=== PATIENT | male | born 1970 | race Caucasian/White ===

== ENCOUNTER 2017-12-22 07:09 | Emergency (ER) | payer BC ==
[~2017-12-22] VITALS: Ht 177.8 cm; Wt 77.1 kg
[~2017-12-22 07:09] MED LIST: ACETASOL HC OTI10 M1 OT; ATIVAN0.5 MG PO; IBUPROFEN 800800 M1 PO; KEFLEX500 MG PO; LEVAQUIN 500 M500 M2 PO; OXYCONTIN10 M1 PO; ROXICODONE15 M1 PO; TYLENOL325 MG PO
[2017-12-22 07:18] VITALS: BP 136/99
[2017-12-22] MEDS ORDERED: OXYCONTIN10 M1 PO (07:21)
[2017-12-22] MEDS ORDERED: PERCOCET PO (07:21)
[2017-12-22] MEDS ORDERED: ATIVAN0.5 MG PO (07:37)
== END 2017-12-22 07:54 | disposition home or self-care (01) ==
LOC: M.ERS 07:09
DX: G56.20 Lesion of ulnar nerve, unspecified upper limb (principal); F41.9 Anxiety disorder, unspecified; F10.99 Alcohol use, unspecified with unspecified alcohol-induced disorder; Z88.8 Allergy status to other drugs, medicaments and biological substances

== ENCOUNTER 2018-03-10 12:18 | Inpatient (IN) | payer BC ==
[~2018-03-10] VITALS: Ht 180.3 cm; Wt 72.6 kg
[2018-03-10] VITALS (9 sets, daily range): BP systolic 94–126; BP diastolic 48–73
[~2018-03-10 12:18] MED LIST changes: +PERCOCET PO
[2018-03-10 12:52] LABS: ABSOLUTE BASOPHILS 0.1 thou/uL (0.0-0.2); ABSOLUTE EOSINOPHILS 0.3 thou/uL (0.0-0.7); ABSOLUTE LYMPHOCYTES 5.3 thou/uL (0.8-5.3); ABSOLUTE MONOCYTES 0.7 thou/uL (0.0-1.2); ABSOLUTE NEUTROPHILS 5.5 thou/uL (1.6-8.1); BASOPHILS 0.5 %; EOSINOPHILS 2.8 %; HEMATOCRIT 42.8 % (42.0-52.0); HEMOGLOBIN 13.7 gm/dL (14.0-18.0); LYMPHOCYTES 44.2 %; MCH 27.5 pg (26.0-34.0); MCHC 32.1 g/dL (28.0-37.0); MCV 85.7 fL (80.0-100.0); MONOCYTES 6.1 %; MPV 8.8 fl. (7.2-11.1); NUCLEATED RBCS 0 /100WBC; PLATELET COUNT* 246 thou/uL (150-400); POLYS 46.4 %; RBC 4.99 mil/uL (4.50-6.00); RDW-CV 13.1 % (10.5-14.5); WBC 11.9 thou/uL (4.0-11.0)
[2018-03-10 12:59] LABS: ANION GAP 27 mmol/L (7-16); BUN 12 mg/dL (7-18); CALCIUM 8.9 mg/dL (8.5-10.1); CHLORIDE 102 mmol/L (98-107); CREATININE 1.5 mg/dL (0.6-1.3); GLUCOSE 172 mg/dL (70-99); SODIUM 139 mmol/L (136-145)
[2018-03-10 13:01] LABS: CO2 10 mmol/L (21-32)
[2018-03-10 13:06] LABS: ALBUMIN 4.1 g/dL (3.4-5.0); ALKALINE PHOSPHATASE 91 U/L (46-116); MAGNESIUM 2.8 mg/dL (1.8-2.4); SGOT 22 U/L (15-37); SGPT 25 U/L (30-65); TOTAL BILIRUBIN 0.6 mg/dL (<0.1-1.0); TOTAL PROTEIN 7.5 g/dL (6.4-8.2); TROPONIN-I LEVEL <0.06 ng/mL (<0.06)
[2018-03-10 14:18] LABS: AMP/METHAMP Negative (Negative); BARBITURATES Negative (Negative); BENZODIAZEPINES POSITIVE (Negative); COCAINE POSITIVE (Negative); METHADONE Negative (Negative); OPIATES Negative (Negative); PCP Negative (Negative); THC POSITIVE (Negative)
--- NOTE | 2018-03-10 14:55 | NUR ---
EEG IS COMPLETE. PT IS ACTIVELY VOMITING. ZOFRAN 4 MG HAS BEEN ADMINISTERED. FAMILY IS AT BEDSIDE.
--- NOTE | 2018-03-10 15:59 | NUR ---
PT COMPLETED AND SIGNED MRI PATIENT SAFETY QUESTIONNAIRE
--- NOTE | 2018-03-10 17:45 | NUR ---
A WHITE MALE AGE 47 ADMITTED POST SEIZURE FROM HOME WITNESSED BY . STEVEN CONSULT CALLED FROM ER. PRT IS VERY IRRATABLE AND SLIGHTLY AGITATED. PT NO COMPLIANT WITH SCD'S. PT REFUSING TO PUT ON GOWN BUT WANTS SOCKS PLACED.RED ABRASSIONS NOTED TO RIGHT HIP. PT REFUSING PICTURES AT THIS TIME. PT ON R/A. PT DENIES ANY COMPLAINTS OF PAIN OR NAUSEA AT THIS TIME.PT TOLERATING PO ICE CHIPS. MRA AND MRI PENDING. PT REQUESTED THAT ANSWER QUESTIONS DUE TO HE WANTS TO SLEEP.PT DOES COMPLAIN OF PHOTOPHOBIA.PT FOLLOWS COMMANDS. STATES THAT PT HAS HAD SEVERAL EPISODES OF CONFUSION LASTING ANYWHERE FROM 10 MINUETS TO 30 MINUETS WHERE PT WILL FORGET WHERE HE IS AT. PT STATES THAT THIS HAS BEEN GOING ON SINCE HE WAS DIAGNOSES WITH HEAT STROKE IN 2013.PT SLEEPING AT THIS TIME.
--- NOTE | 2018-03-10 18:57 | NUR ---
PT REMAINS RESTING AT THIS TIME. HAS FOR NOW.SHIFT REPORT TO BE GIVEN.
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
[2018-03-11] VITALS (20 sets, daily range): BP systolic 86–104; BP diastolic 40–59
--- NOTE | 2018-03-11 08:30 | NUR ---
PT RESTING COMFORTABLE, SLEEP INTERUPTED.PT TOLERATING PO FLUIDS.IVF INFUSING. PY DENIES PAIN AT THIS TIME. PT REFUSES BLOOD SUGAR STATING THAT I AM NOT DIABETIC.
--- NOTE | 2018-03-11 13:27 | EKG ---
[place] [address] ELECTROCARDIOGRAM REPORT Name: DAI ZAMARRIPA Room: [facility]- ADM IN M.R.#: [id number] Admission: 03/10/18 Attend Phys: Goldy Castro, Discharge: Date of : 70 Report #: [id number] THIS REPORT FOR: //name// [facility] ED Test Date: 2018-03-10 Test Time: 12:27:06 Pat Name: DAI ZAMARRIPA Department: Room: [facility] Gender: M Calliope Player: MISHEL : 1970 Requested By: Devika Mendoza Order Number: [id number] MD: Mu Collazo Measurements Intervals [place] Rate: 77 P: 76 AR: 163 QRS: 36 QRSD: 108 T: 52 QT: 419 QTc: 475 Interpretive Statements Sinus rhythm Anterior infarct, old Minimal ST depression, inferior leads Baseline wander in lead(s) V5 Compared to ECG 06/24/2014 11:15:50 ST (T wave) deviation now present Sinus arrhythmia no longer present Myocardial infarct finding still present Electronically Signed On 03-11-2018 13:27:27 CDT by Mu Collazo [email or web address] <ELECTRONICALLY SIGNED> By: Hemanth Collazo MD, [facility] 03/11/18 1327 1227 1227 Hemanth Collazo MD, [facility] /EPI
[2018-03-11 15:29] LABS: ABSOLUTE BASOPHILS 0.1 thou/uL (0.0-0.2); ABSOLUTE LYMPHOCYTES 1.7 thou/uL (0.8-5.3); ABSOLUTE MONOCYTES 1.2 thou/uL (0.0-1.2); ABSOLUTE NEUTROPHILS 12.5 thou/uL (1.6-8.1); BASOPHILS 0.5 %; EOSINOPHILS 0.2 %; LYMPHOCYTES 10.9 %; MCH 27.6 pg (26.0-34.0); MCHC 33.5 g/dL (28.0-37.0); MCV 82.4 fL (80.0-100.0); MONOCYTES 7.8 %; MPV 8.7 fl. (7.2-11.1); NUCLEATED RBCS 0 /100WBC; PLATELET COUNT* 172 thou/uL (150-400); POLYS 80.6 %; RBC 4.25 mil/uL (4.50-6.00); WBC 15.5 thou/uL (4.0-11.0)
[2018-03-11 15:40] LABS: HEMOGLOBIN 11.7 gm/dL (14.0-18.0)
[2018-03-11 15:49] LABS: POTASSIUM 3.6 mmol/L (3.5-5.1)
[2018-03-11 15:51] LABS: ALBUMIN 3.1 g/dL (3.4-5.0); TOTAL BILIRUBIN 0.6 mg/dL (<0.1-1.0); TOTAL PROTEIN 5.7 g/dL (6.4-8.2)
--- NOTE | 2018-03-11 18:50 | NUR ---
PT HAD MULTIPLE VISITORS.PT PREFERS TO KEEP ROOM DARK AND WANTS TO SLEEP ALL DAY. PT GIVEN PRN ATIVAN TIMES 3 WITH PAIN PILL GIVEN TIMES ONE. PT REMANS TOLERATING PO FLUIDS AND SOLID FOOD WITH NO COMPLAINTS OF NAUSEA. PT REMAINS IRRATABLE AND EASILY AGITATED WANTING MONITORING DEVICES REMOVED. PT ALSO STATED THAT HE IS TIRED OF HEARING ALRMS GOING OFF, REMINDED PT THAT SOME OF THE ALRMS ARE FROM REMOVING O2 SENSOR AND TELE LEADS COMING OFF WITH TUIRNING IN BED.PT VOIDING CLEAR YELLOW URINE INTO URINAL.PT GIVEN IVP ATIVAN EARLIER AND IS RESTING COMFORTABLE.
--- NOTE | 2018-03-11 20:00 | NUR ---
INITAL ASSESSMENT COMPLETED AT 1915. PT RESTING WITH OU CLOSED, ALERT AND ORIENTED TIMES 4. PT'S AT BEDSIDE. BRIEFLY DISCUSSED PT'S CONDITION. LEFT FOR HOME AND PLANS TO RETURN BEFORE VISITING HOURS ARE OVER. CALL LIGHT IN REACH, BED ALARM ON. PT INSTRUCTED TO CALL FOR ASSISTANCE. PT DEMONSTRATES PROPER USE.
--- NOTE | 2018-03-11 22:51 | NUR ---
ENTERED PT'S ROOM AT 2230 TO HANG NEW BAG OF NORMAL SALINE. PT WAS SLEEPING AT THAT TIME AND AWOKE WHEN IV PUMP MADE NOISE. PT ASKED FOR SOMETHING TO HELP HIM SLEEP. PT GIVEN 2 MG ATIVAN AT 2100 FOR SAME REQUEST. PT DID GO TO SLEEP AFTER LAST DOSE OF ATIVAN GIVEN. PT VERY IMPATIENT ABOUT WAITING FOR MEDS WHEN HE REQUESTS THEM. PT INFORMED NEXT DOSE DUE AT 2300. LEFT PT'S ROOM AND PT RANG CALL LIGHT AGAIN LESS THAN ONE MINUTE AFTER DOOR WAS CLOSED. OTHER CARPENTER PROTOTYPE ENTERED PT'S ROOM. PT ANGRY ABOUT NOT GETTING MEDICINE FOR SLEEP. PT AGAIN INFORMED NEXT DOSE DUE AT 2300.
[2018-03-12] VITALS (10 sets, daily range): BP systolic 88–126; BP diastolic 53–72
--- NOTE | 2018-03-12 00:34 | NUR ---
REPLACED ALL MONITORING LEADS AT MIDNIGHT WHEN IN FORMING PT HIS MEDICINE WAS NOT DUE UNTIL 0100. AT 0020 PT REMOVED ALL MONITORING EQUIPMENT AGAIN. PAGED DR HOLLOWAY.
--- NOTE | 2018-03-12 00:48 | NUR ---
RECIEVED CALL BACK FROM DR HOLLOWAY AND REPORTED PT BEHAVIOR AND SYMPTOMS. RECIEVED ORDER FOR ORI WICK.
--- NOTE | 2018-03-12 01:39 | NUR ---
PT RANG CALL LIGHT AT THIS TIME AND ASKED WHEN HE WAS GETTING MORE SLEEPING MEDICINE. INFORMED PT HE HAD TAKEN PO GEODON FOR SLEEP AND RECIEVED IV ATIVAN AT 0100. PT STATED IT WAS NOT WORKING VERY WELL. INFORMED PT THAT PILL MAY NOT BE WORKING JUST YET AND ASKE HIM TO PLEASE BE PATIENT.
--- NOTE | 2018-03-12 02:28 | NUR ---
PT RANG LIGHT AND ASKED FOR SLEEPING MEDICINE AND ANXIETY MEDICINE. INFORMED PT HE HAD TAKEN A PILL FOR SLEEP AND IV ATIVAN FOR ANXIETY AT 0100. PT STATED HIS BACK WAS HURTING AND ASKED FOR PAIN MEDICINE. PT GIVEN PRN MORPHINE.
[2018-03-12 04:02] LABS: HEMATOCRIT 33.6 % (42.0-52.0); HEMOGLOBIN 11.2 gm/dL (14.0-18.0); MCH 27.2 pg (26.0-34.0); MCHC 33.3 g/dL (28.0-37.0); MCV 81.7 fL (80.0-100.0); MPV 9.3 fl. (7.2-11.1); RBC 4.11 mil/uL (4.50-6.00); RDW-CV 12.7 % (10.5-14.5); WBC 12.3 thou/uL (4.0-11.0)
[2018-03-12 05:05] LABS: ALBUMIN 2.9 g/dL (3.4-5.0); CALCIUM 7.8 mg/dL (8.5-10.1); CREATININE 1.7 mg/dL (0.6-1.3); MAGNESIUM 2.1 mg/dL (1.8-2.4); POTASSIUM 3.8 mmol/L (3.5-5.1); TOTAL BILIRUBIN 0.5 mg/dL (<0.1-1.0); TOTAL PROTEIN 5.1 g/dL (6.4-8.2)
--- NOTE | 2018-03-12 13:48 | NUR ---
SPOKE WITH DR. SOTELO EARLIER, PT CAN BE DISCHARGED LATER TODAY IF HE WAKES UP MORE AND IS ABLE TO TOLERATE HIS DIET AND WALK AROUND. PT SLEEPING EARLIER, WILL ASSESS AT A LATER TIME.
--- NOTE | 2018-03-12 15:34 | NUR ---
PATIENT UP IN [place] STILL SEEING DOUBLE, GAIT MORE SEADY THAN IN AM. LOOKING MORE ALERT. HAD BOUT OF EMESIS. PROGRESSING TOWARD GOALS.
--- NOTE | 2018-03-12 17:58 | NUR ---
PATIENT DISCHARED HOME VIA PRIVATE CAR UNDERSTANDS PATIENT NOT DRIVE FOR 6 MOS INSTRUCTIONS GIVEN AND VERIFIED.
--- NOTE | 2018-03-13 17:26 | CON ---
[address] [address] CONSULTATION Name: DAI ZAMARRIPA Room: [address] IN M.R.#: [id number] Admission: 03/10/18 Attend Phys: Goldy Castro, Discharge: 03/12/18 Date of : 70 Report #: [id number] THIS REPORT FOR: //name// CC: JORGE physician/PCP Goldy Castro DATE OF SERVICE: 03/11/2018 HISTORY OF PRESENT ILLNESS: This is a 47-year-old male patient who was evaluated by me for seizure. The patient will not provide any history. He wants me to talk to his and the mother who was in the room, which I did. As I understand from the family, this patient has smoked marijuana on a continuous basis and daily basis for a long period of time. They do not believe this patient has used any other drugs and the patient will not answer those questions. However, this patient has marijuana, cocaine and benzodiazepine in the urine drug screen. Now it might be mentioned that this patient did get some Versed because he became agitated after his seizures by ambulance people and benzodiazepine and was most likely because of that, but he also had cocaine in his system. He would not answer any question, but some of the records I reviewed indicate that this patient also has history of benzo abuse, but that history is not confirmed. He was admitted because he had an episode of seizure, which lasted couple of minutes. He was in the shower. He was combative after that. He has become better, but he is still pretty and cooperative with the exam. REVIEW OF SYSTEMS: Indicate patient is having some episodes of memory loss. One of them happened in December, the other one the last year. They lasted about 30 minutes. The patient will keep asking the same question again and again. It is not known what kind of drugs he has used that time. He does have a history of memory loss and heat exhaustion. I carried out the 14-point review of system the best I can, but he would not add or say anything. The only thing he said is that when I said to the family that the use of marijuana or any street drugs is not a good thing and he said "it is not that bad either." That was the 14-point review of system I could collect in this patient. PAST MEDICAL HISTORY: Positive for anxiety. FAMILY HISTORY: Positive for epilepsies. SOCIAL HISTORY: This patient does not drink alcohol, but used drugs, especially marijuana. PHYSICAL EXAMINATION: Indicate that he will not cooperate. I made multiple attempts to do the examinations and he just would not do it. The only thing I can tell, he opens his eyes. He moves in all direction. He does not have any meningeal sign. He does not complain of much pain. [place] [address] CONSULTATION Name: DAI ZAMARRIPA Room: [address] IN M.R.#: [id number] Admission: 03/10/18 Attend Phys: Goldy Castro, Discharge: 03/12/18 Date of : 70 Report #: [id number] appear noncontributory and he is not in respiratory difficulty. Blood pressure is 104/52, respirations 16, pulse is 76, temperature is 98.8. LABORATORY DATA: His last white count was 11.9. His creatinine is 1.5. He did have an MRI of the brain and MRA of the head and that was unremarkable. IMPRESSION: 1. New onset seizure, probably related to the drug use, but he does have a family history of seizure disorder. 2. Significant amount of drug abuse and I think it is more than just marijuana because of cocaine positive urine. 3. Anxiety. RECOMMENDATIONS: 1. This patient was strongly advised to stop abusing street drugs, but I do not think he is willing for that. 2. This patient needs to take seizure precautions for 6 months. 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 3. I do not think we need to put him on any anticonvulsants at the moment, but I did discuss that options with him. They asked about multiple anticonvulsants and I did discuss with them. This patient needs a psychiatric consult, but I do not know whether that can be arranged here or not. All of it was discussed in detail with the patient's family and I tried to talk to the patient, but I do not think he will listen. We will also try tomorrow and see if he is more receptive. Thank you very much for this referral. <ELECTRONICALLY SIGNED> By: Jefe Willson MD 03/13/18 1726 1203 [id number] Willson MD /nt
--- NOTE | 2018-03-13 17:26 | EEG ---
[address] [address] EEG STUDY REPORT Name: DALLINDAI KAY Room: [address] IN M.R.#: [id number] Admission: 03/10/18 Attend Phys: Goldy Castro, Discharge: 03/12/18 Date of : 70 Report #: [id number] THIS REPORT FOR: //name// CC: FAM physician/PCP Goldy Castro DATE OF SERVICE: 03/10/2018 This patient is being evaluated for the possibility of seizure. EEG was done by placing the electrodes by standard 10-20 system of electrode placement. Both referential and sequential montages were used for recording. Background activity in this patient's EEG is about 9 Hz and 25 microvolts. The patient went to sleep that is associated with bilaterally symmetrical sleep spindle and vertex sharp waves. Photic stimulation is unremarkable. Throughout the record, no active epileptiform activity was noticed. IMPRESSION: This patient's EEG does not demonstrate any active epileptiform activity. Thank you very much for this referral. <ELECTRONICALLY SIGNED> By: Jefe Willson MD 03/13/18 1726 0959 [id number] Willson MD /nt
== END 2018-03-12 17:30 | disposition home or self-care (01) | DRG 100 ==
LOC: M.ERS 12:18 → M.TBA-ER 15:58 → M.ICU 15:58
PROVIDERS: Personal Emergency Response Attendant; ADMIT Family Medicine
PROC: 4A00X4Z Measurement of Central Nervous Electrical Activity, External Approach (ICD-10-PCS; principal; 2018-03-11)
DX: G40.409 Other generalized epilepsy and epileptic syndromes, not intractable, without status epilepticus (principal); N17.0 Acute kidney failure with tubular necrosis; E87.2 Acidosis; F14.10 Cocaine abuse, uncomplicated; E86.9 Volume depletion, unspecified; F22 Delusional disorders; F12.10 Cannabis abuse, uncomplicated; F41.9 Anxiety disorder, unspecified; Z87.81 Personal history of (healed) traumatic fracture; Z88.8 Allergy status to other drugs, medicaments and biological substances; Z82.0 Family history of epilepsy and other diseases of the nervous system; Z82.5 Family history of asthma and other chronic lower respiratory diseases

== ENCOUNTER 2018-11-16 05:49 | Emergency (ER) | payer OTHER ==
[~2018-11-16] VITALS: Ht 175.3 cm; Wt 77.1 kg
[~2018-11-16 05:49] MED LIST changes: +OXYCODONE HCL15 MG PO
[2018-11-16 06:17] LABS: URINE BILIRUBIN NEGATIVE (Negative); URINE BLOOD 1+ (Negative); URINE CLARITY CLEAR; URINE COLOR YELLOW; URINE GLUCOSE-RANDOM NEGATIVE (Negative); URINE KETONES NEGATIVE (Negative); URINE LEUKOCYTES-REFLEX NEGATIVE (Negative); URINE NITRITE-REFLEX NEGATIVE (Negative); URINE PROTEIN NEGATIVE (Negative); URINE SPECIFIC GRAVITY <= 1.005 (1.005-1.030); URINE UROBILINOGEN 0.2 E.U./dl (0.2-1.0)
[2018-11-16 06:18] LABS: BACTERIA-REFLEX 1-9 Few /HPF (None Seen); SQUAMOUS 0-3 Few /LPF (0-3); URINE RBC 3-10 Few /HPF (0-2); URINE WBC-REFLEX 0-5 Rare /HPF (0-5)
[2018-11-16 06:19] LABS: CASTS None Seen /LPF (None Seen); CRYSTALS None Seen /LPF (None Seen); MUCUS 0-3 Light strn/LPF (None Seen)
[2018-11-16 06:26] LABS: ABSOLUTE EOSINOPHILS 0.1 thou/uL (0.0-0.7); ABSOLUTE MONOCYTES 0.7 thou/uL (0.0-1.2); ABSOLUTE NEUTROPHILS 6.7 thou/uL (1.6-8.1); BASOPHILS 0.4 %; EOSINOPHILS 1.3 %; HEMATOCRIT 40.1 % (42.0-52.0); HEMOGLOBIN 13.4 gm/dL (14.0-18.0); LYMPHOCYTES 11.5 %; MCHC 33.4 g/dL (28.0-37.0); MCV 80.9 fL (80.0-100.0); MONOCYTES 7.9 %; MPV 8.6 fl. (7.2-11.1); NUCLEATED RBCS 0 /100WBC; PLATELET COUNT* 197 thou/uL (150-400); POLYS 78.9 %; RBC 4.95 mil/uL (4.50-6.00); RDW-CV 13.1 % (10.5-14.5); WBC 8.5 thou/uL (4.0-11.0)
[2018-11-16 06:33] LABS: AMP/METHAMP Negative (Negative); BARBITURATES POSITIVE (Negative); BENZODIAZEPINES Negative (Negative); COCAINE Negative (Negative); METHADONE Negative (Negative); OPIATES Negative (Negative); PCP Negative (Negative); THC POSITIVE (Negative)
[2018-11-16 06:34] LABS: CALCIUM 8.2 mg/dL (8.5-10.1); CREATININE 1.1 mg/dL (0.6-1.3)
[2018-11-16 06:39] LABS: ALBUMIN 3.6 g/dL (3.4-5.0); TOTAL BILIRUBIN 0.3 mg/dL (<0.1-1.0); TOTAL PROTEIN 7.1 g/dL (6.4-8.2)
[2018-11-16] MEDS ORDERED: LOMOTIL TABLET1 EACH PO (06:49)
[2018-11-16 06:58] VITALS: BP 132/80
== END 2018-11-16 07:01 | disposition home or self-care (01) ==
LOC: M.ERS 05:49
PROVIDERS: Emergency Medicine
DX: R19.7 Diarrhea, unspecified (principal); F41.9 Anxiety disorder, unspecified; Z88.8 Allergy status to other drugs, medicaments and biological substances; Z79.899 Other long term (current) drug therapy

== ENCOUNTER 2018-11-18 05:39 | Inpatient (IN) | payer OTHER ==
[~2018-11-18] VITALS: Ht 175.3 cm; Wt 81.6 kg
--- NOTE | ~2018-11-18 | EEG ---
[address] [address] EEG STUDY REPORT Name: DAI ZAMARRIPA Room: [address] IN M.R.#: [id number] Admission: 11/18/18 Attend Phys: Ruth Ann Colby MD Discharge: Date of : 70 Report #: [id number] THIS REPORT FOR: //name// CC: JORGE physician/PCP Ruth Ann Colby DATE OF SERVICE: 11/18/2018 DESCRIPTION: This patient is being evaluated for seizure. EEG was done by placing the electrodes by standard 10-20 system of electrode placement. Both referential and sequential montages were used for recording. Background activity in this patient's EEG is about 10-11 Hz and 30 microvolts. The patient went to sleep that is associated with bilateral slowing and vertex sharp waves. Photic stimulation was unremarkable. Throughout the record, no active epileptiform activity was noticed. IMPRESSION: This patient is masked by a lot of artifact and is very difficult to interpret. It is suboptimal because of that, but does not appear to be showing any definite epileptiform activity. Thank you very much for this referral. By: 1359 1604Pnatty Willson MD /nt
--- NOTE | ~2018-11-18 | CON ---
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 The patient is accompanied by his who reports that he had a 4-day history of diarrhea and nausea, diagnosed with gastroenteritis. He came to this hospital for IBS 2 days ago, which did stop his diarrhea and abdominal pain. He was noted to have a seizure at the motel that they are reciting in by his shortly after getting up. His described convulsive movements of the arms and the legs and he did bite his tongue and it was blood coming from his mouth. Paramedics were called. He was noted to be very combative. He received ketamine and Ativan because of agitation. He is alert and oriented at the present time. He reports that this is his second seizure. The first occurred in February when he had been sleep deprived and had a seizure. Workup was unremarkable. He was referred to . He was seen in the seizure clinic. He was told that all studies were unremarkable. He was not started on medication. He reports that he has had a number of heat strokes in the past, the first one in 1997. He has had 3 more in the last few years, the last in 2013 and wonders if the heat strokes might have anything to do with this. He has had spells of memory issues when he has amnesia for events and also wonders if these could be seizures. There is a family history of seizures in his maternal grandmother. No one else has seizures or neurologic problems. His father of [place]. His mother is living and is doing well. The patient sustained a fracture of L3-L4 and is taking oxycodone ER 10 mg b.i.d. His primary care doctor is Dr. Fonseca in [place]. He states that he had in the past been on much higher doses of oxycodone, but he has been able to taper the dose down to 10 mg b.i.d. He reports that he does smoke marijuana, but he denies using any other recreational drugs. He does not drink. He states that he was sleep deprived during this period of time when he had the gastroenteritis. The patient states that he has always had high anxiety, but he does not take any prescription medication for anxiety on a routine basis. He states that he is under high stress in his job, but that this is the best job that he has had for years. ALLERGIES: The patient reports allergies to NAPROXEN. He reports taking Lomotil 4 times a day. He only had 10 pills. He denies ever smoking nicotine [place] [address] CONSULTATION Name: DAI ZAMARRIPA Room: [address] IN [facility]#: [id number] Admission: 11/18/18 Attend Phys: Ruth Ann Colby MD Discharge: Date of : 70 Report #: [id number] FAMILY HISTORY: As above. REVIEW OF SYSTEMS: No symptoms reported in review of constitutional, eyes, ears, nose and throat, respiratory, cardiovascular or genitourinary systems. He does report the recent gastroenteritis, but reports no rashes, fever, chills or lymphadenopathy. PHYSICAL EXAMINATION: VITAL SIGNS: Blood pressure 136/74, pulse 67 and regular, temperature 37.5. GENERAL: The patient is lying in bed. His is at the bedside. He appears well developed, well nourished, well-nourished, in no apparent distress. NECK: Supple. EXTREMITIES: No edema is noted. NEUROLOGIC: He is alert, oriented with normal memory and speech. He is anxious. On cranial nerve testing, the pupils were equally round and reactive. Extraocular movements were full without nystagmus. Visual aldridge were full to confrontation. Facial sensation and mobility were normal. Hearing was intact bilaterally. The tongue had abrasions, particularly on the left side, but also to a degree on the right. Motor testing reveals full power in his arms or legs. There was no tremor or involuntary movements. Tone was normal. Sensation testing was intact to light touch and pin. Coordination testing was done well with [id number]. Reflexes were 2+ and equal from side to side. Toes were downgoing. Gait was not tested. LABORATORY STUDIES: Showed hemoglobin of 13.5, hematocrit 40.7. Chemistry showed potassium of 3.2, otherwise unremarkable. A B12 level was 555, folate was 14.1. Thyroid was 2.5. Toxicology showed positives for barbs, benzos, and marijuana. Cocaine was negative. Amphetamine was negative. Urine opiate screen was also negative. The patient states that he had been taking his oxycodone, but with diarrhea. He thinks that they passed through without being absorbed. An EEG was done, which will be officially read by Dr. Willson on my review. No epileptiform discharges were noted. IMPRESSION: The patient has a good history of seizure as described by his . The abrasion of his tongue strengthens the idea that this was not a pseudoseizure, but does not totally rule it out. However, seizures, particularly frontal lobe seizures, can have normal electroencephalograms if they are not caught right at the time. I did inform the patient that the [place] Department of Motor Vehicles guideline is to be seizure free for 6 [address] before he [address]. He was aware of this regulation. We discussed going on an anti-seizure medicine because this is the second seizure. He is reluctant because he feels that the provoking factor was the gastroenteritis and the diarrhea, possibly relating [place] [address] CONSULTATION Name: DAI ZAMARRIPA Room: [address] IN M.R.#: [id number] Admission: 11/18/18 Attend Phys: Ruth Ann Colby MD Discharge: Date of : 70 Report #: [id number] opiates or sleep deprivation. However, his would like for him to reconsider his decision and he agreed that he would talk to her about it and make his decision later on today. By: 1342 [id number] Sanchez MD /nt
[~2018-11-18 05:39] MED LIST changes: +LOMOTIL TABLET1 EACH PO
[2018-11-18 05:45] VITALS: BP 111/62
[2018-11-18 06:14] LABS: ABSOLUTE EOSINOPHILS 0.3 thou/uL (0.0-0.7); ABSOLUTE LYMPHOCYTES 1.3 thou/uL (0.8-5.3); ABSOLUTE MONOCYTES 0.5 thou/uL (0.0-1.2); ABSOLUTE NEUTROPHILS 5.9 thou/uL (1.6-8.1); BASOPHILS 0.5 %; EOSINOPHILS 3.3 %; HEMATOCRIT 40.7 % (42.0-52.0); HEMOGLOBIN 13.5 gm/dL (14.0-18.0); LYMPHOCYTES 15.6 %; MCH 26.9 pg (26.0-34.0); MCHC 33.1 g/dL (28.0-37.0); MCV 81.3 fL (80.0-100.0); MONOCYTES 6.5 %; MPV 9.1 fl. (7.2-11.1); NUCLEATED RBCS 0 /100WBC; PLATELET COUNT* 225 thou/uL (150-400); POLYS 74.1 %; RBC 5.01 mil/uL (4.50-6.00); RDW-CV 12.9 % (10.5-14.5)
[2018-11-18 06:25] LABS: INR 1.1
[2018-11-18 06:40] LABS: ANION GAP 14 mmol/L (7-16); BUN 8 mg/dL (7-18); CALCIUM 8.5 mg/dL (8.5-10.1); CHLORIDE 106 mmol/L (98-107); CO2 23 mmol/L (21-32); CREATININE 1.2 mg/dL (0.6-1.3); GLUCOSE 134 mg/dL (70-99); POTASSIUM 3.2 mmol/L (3.5-5.1); SODIUM 143 mmol/L (136-145)
[2018-11-18 06:50] LABS: ALBUMIN 3.5 g/dL (3.4-5.0); ALKALINE PHOSPHATASE 92 U/L (46-116); NT-PRO BRAIN NAT PEPTIDE 39 pg/mL (<300); SGOT 27 U/L (15-37); SGPT 41 U/L (30-65); TOTAL BILIRUBIN 0.2 mg/dL (<0.1-1.0); TOTAL PROTEIN 7.1 g/dL (6.4-8.2); TROPONIN-I LEVEL <0.06 ng/mL (<0.06)
--- NOTE | 2018-11-18 07:17 | NUR ---
PT SCREAMING FROM HIS BED THAT HE HAS TO PEE. PT WAS BROUGHT URINAL AND ASKED IF HE NEEDS ASSISTANCE WITH USING A URINAL, PT DENIED NEEDING TO PEE ANYMORE. URINAL LEFT AT BEDSIDE.
--- NOTE | 2018-11-18 07:25 | NUR ---
PT WAS TAKEN OUT OF 4 POINT RESTRAINTS AT 0720. PT COOPERATING AT THIS TIME.
[2018-11-18 07:44] LABS: URINE BILIRUBIN NEGATIVE (Negative); URINE BLOOD 1+ (Negative); URINE CLARITY CLEAR; URINE COLOR YELLOW; URINE GLUCOSE-RANDOM NEGATIVE (Negative); URINE KETONES NEGATIVE (Negative); URINE LEUKOCYTES-REFLEX NEGATIVE (Negative); URINE NITRITE-REFLEX NEGATIVE (Negative); URINE PROTEIN NEGATIVE (Negative); URINE SPECIFIC GRAVITY >= 1.030 (1.005-1.030); URINE UROBILINOGEN 0.2 E.U./dl (0.2-1.0)
[2018-11-18 07:51] LABS: AMP/METHAMP Negative (Negative); BARBITURATES POSITIVE (Negative); BENZODIAZEPINES POSITIVE (Negative); COCAINE Negative (Negative); METHADONE Negative (Negative); OPIATES Negative (Negative); PCP Negative (Negative); SQUAMOUS 0-3 Few /LPF (0-3); THC POSITIVE (Negative)
[2018-11-18 07:52] LABS: BACTERIA-REFLEX 1-9 Few /HPF (None Seen); CASTS None Seen /LPF (None Seen); CRYSTALS None Seen /LPF (None Seen); MUCUS None Seen strn/LPF (None Seen); URINE RBC 0-2 Rare /HPF (0-2); URINE WBC-REFLEX 0-5 Rare /HPF (0-5)
--- NOTE | 2018-11-18 09:23 | NUR ---
PT'S PHONE WAS GIVEN TO SECURITY
[2018-11-18 10:00] LABS: ACETAMINOPHEN < 2 ug/mL (10-30); ALCOHOL < 10 mg/dL (<10); SALICYLATE < 2.8 mg/dL (2.8-20.0)
[2018-11-18 10:11] VITALS: BP 109/59
[2018-11-18 10:30] VITALS: BP 136/74
--- NOTE | 2018-11-18 13:54 | EKG ---
[place] [address] ELECTROCARDIOGRAM REPORT Name: DAI ZAMARRIPA Room: [address] ADM IN .R.#: [id number] Admission: 11/18/18 Attend Phys: Ruth Ann Colby MD Discharge: Date of : 70 Report #: [id number] THIS REPORT FOR: //name// [facility] ED Test Date: 2018-11-18 Test Time: 06:03:51 Pat Name: DAI ZAMARRIPA Department: Room: [facility] Gender: M House Carpenter: : 1970 Requested By: Velia Jones Order Number: [id number] MD: Alexandro Malik Measurements Intervals [place] Rate: 86 P: 69 ID: 170 QRS: 36 QRSD: 105 T: 48 QT: 382 QTc: 457 Interpretive Statements Sinus rhythm Anterior infarct, old Baseline wander in lead(s) III,aVF Compared to ECG 03/10/2018 12:27:06 Myocardial infarct finding still present Electronically Signed On 11-18-2018 13:54:08 HAND SPRAY OPERATOR by Alexandro Malik [email or web address] <ELECTRONICALLY SIGNED> By: Alexandro Malik MD, [facility] 11/18/18 1354 0603 0603 Alexandro Malik MD, [facility] /EPI
--- NOTE | 2018-11-18 14:00 | NUR ---
PATIENT PRESENTED TO 2W FROM ER THIS AM PER CART. PATIENT IS ALERT, ORIENTED, ANXIOUS AND C/O BACK PAIN AND OXCONTIN W/D ON ARRIVAL TO THE ROOM. PATIENT ADMITTED TO THE ROOM AND DR HOLLOWAY NOTIFIED FOR PATIENT'S COMPLAINTS. IV FLUIDS STARTED AND PATIENT STARTED ON OXYCONTIN PER ORDER. ATIVAN GIVEN IV X 1 FOR ANXIETY. PATIENT ORIENTED TO ROOM AND PROCEDURES. POTASSIUM 40 MEQ GIVEN PO PER PROTOCAL. PATIENT PLACED ON TELE MONITOR, SIDERAILS PADDED, AND O2 IS AT THE HOB. EEG DONE PER TECH. TELE SHOWS SR. WILL CONTINUE TO MONITOR FOR SEIZURE ACTIVITY. PATIENT ON FALL PRECAUTIONS.
[2018-11-18 20:00] VITALS: BP 92/53
[2018-11-19] VITALS: BP 105/63
[2018-11-19 04:00] VITALS: BP 93/48
[2018-11-19 05:21] LABS: MCH 27.8 pg (26.0-34.0); MCHC 34.5 g/dL (28.0-37.0); MCV 80.6 fL (80.0-100.0); MPV 9.1 fl. (7.2-11.1); RBC 4.09 mil/uL (4.50-6.00); RDW-CV 12.8 % (10.5-14.5); WBC 9.2 thou/uL (4.0-11.0)
[2018-11-19 05:56] LABS: CALCIUM 7.9 mg/dL (8.5-10.1); MAGNESIUM 1.9 mg/dL (1.8-2.4); POTASSIUM 3.2 mmol/L (3.5-5.1)
[2018-11-19 05:57] LABS: HEMOGLOBIN 11.4 gm/dL (14.0-18.0)
--- NOTE | 2018-11-19 06:45 | NUR ---
ASSUMED CARE OF PT AFTER REPORT AT 1930. PT A&OX4. VSS. PHYSICAL ASSESSMENT COMPLETED AND CHARTED. PT ON RA WITH 97% O2 SAT. PT TRACING SR/SB ON TELE. PT UPSTANDBY. SEIZURE PRECAUTION MAINTAINED. PT REQUESTED FOR STRONGER SLEEPING PILL- DR NOVA INFORMED WITH NEW ORDERS. CALL LIGHT WITHIN REACH.
[2018-11-19 08:00] VITALS: BP 106/68
[2018-11-19] MEDS ORDERED: KEPPRA 500 MG500 M1 PO (10:38)
[2018-11-19 12:00] VITALS: BP 124/62
[2018-11-19 12:44] VITALS: BP 124/62
== END 2018-11-19 13:00 | disposition home or self-care (01) | DRG 101 ==
LOC: M.ERS 05:39 → M.TBA-ER 06:39 → M.2W 07:20 → M.TBA-ER 07:20 → M.2W 10:27
PROVIDERS: Emergency Medicine; Family Medicine; ADMIT Internal Medicine
DX: G40.909 Epilepsy, unspecified, not intractable, without status epilepticus (principal); Z88.8 Allergy status to other drugs, medicaments and biological substances; G89.29 Other chronic pain; M54.5 Low back pain; A08.4 Viral intestinal infection, unspecified; L23.7 Allergic contact dermatitis due to plants, except food; Z53.29 Procedure and treatment not carried out because of patient's decision for other reasons; K58.9 Irritable bowel syndrome, unspecified; S00.512A Abrasion of oral cavity, initial encounter; X58.XXXA Exposure to other specified factors, initial encounter; Y93.89 Activity, other specified; Y92.89 Other specified places as the place of occurrence of the external cause; Y99.8 Other external cause status

== ENCOUNTER 2019-04-25 15:39 | Emergency (ER) | payer OTHER ==
[~2019-04-25] VITALS: Ht 175.3 cm; Wt 81.7 kg
[~2019-04-25 15:39] MED LIST changes: +KEPPRA 500 MG500 M1 PO
[2019-04-25 15:44] VITALS: BP 137/85
== END 2019-04-25 16:40 | disposition home or self-care (01) ==
LOC: M.ERS 15:39
DX: Z02.79 Encounter for issue of other medical certificate (principal); Z88.8 Allergy status to other drugs, medicaments and biological substances

== ENCOUNTER 2019-04-28 11:18 | Inpatient (IN) | payer OTHER ==
[~2019-04-28] VITALS: Ht 175.3 cm; Wt 79.5 kg
[2019-04-28 11:21] VITALS: BP 118/56
[2019-04-28 12:11] LABS: ABSOLUTE BASOPHILS 0.1 thou/uL (0.0-0.2); ABSOLUTE EOSINOPHILS 0.2 thou/uL (0.0-0.7); ABSOLUTE LYMPHOCYTES 2.3 thou/uL (0.8-5.3); ABSOLUTE MONOCYTES 0.9 thou/uL (0.0-1.2); ABSOLUTE NEUTROPHILS 12.7 thou/uL (1.6-8.1); BASOPHILS 0.7 %; EOSINOPHILS 1.3 %; HEMATOCRIT 41.4 % (42.0-52.0); HEMOGLOBIN 13.9 gm/dL (14.0-18.0); LYMPHOCYTES 14.1 %; MCH 26.6 pg (26.0-34.0); MCHC 33.5 g/dL (28.0-37.0); MCV 79.4 fL (80.0-100.0); MONOCYTES 5.6 %; MPV 8.5 fl. (7.2-11.1); NUCLEATED RBCS 0 /100WBC; PLATELET COUNT* 273 thou/uL (150-400); POLYS 78.3 %; RBC 5.22 mil/uL (4.50-6.00); RDW-CV 13.2 % (10.5-14.5); WBC 16.1 thou/uL (4.0-11.0)
[2019-04-28 12:33] LABS: CALCIUM 9.1 mg/dL (8.5-10.1); CREATININE 1.4 mg/dL (0.6-1.3); POTASSIUM 3.7 mmol/L (3.5-5.1)
[2019-04-28 12:37] LABS: ALBUMIN 3.9 g/dL (3.4-5.0); TOTAL BILIRUBIN 0.3 mg/dL (<0.1-1.0); TOTAL PROTEIN 7.4 g/dL (6.4-8.2); TROPONIN-I LEVEL 0.25 ng/mL (<0.06)
[2019-04-28 15:28] VITALS: BP 113/64
[2019-04-28 15:35] VITALS: BP 103/62
[2019-04-28] MEDS ORDERED: COLACE100 MG PO (16:20)
[2019-04-28 17:51] VITALS: BP 105/70
[2019-04-28 20:00] VITALS: BP 96/53
[2019-04-28 23:48] LABS: CALCIUM 8.3 mg/dL (8.5-10.1); CREATININE 1.1 mg/dL (0.6-1.3); MAGNESIUM 1.9 mg/dL (1.8-2.4); POTASSIUM 4.2 mmol/L (3.5-5.1)
[2019-04-29] VITALS: BP 98/67
[2019-04-29 04:00] VITALS: BP 86/55
[2019-04-29 07:45] VITALS: BP 98/57
[2019-04-29 09:09] LABS: CHOLESTEROL 155 mg/dL (<200); HDL CHOLESTEROL 36 mg/dL (>40); LDL CHOLESTEROL 101 mg/dL (<100); TC:HDL 4.3 Ratio (Not establshd); TRIGLYCERIDE 93 mg/dL (<150); VLDL 19 mg/dL (<40)
[2019-04-29 09:10] LABS: SERUM ASSESSMENT Clear
[2019-04-29 11:42] VITALS: BP 103/81
--- NOTE | 2019-04-29 14:28 | 2DMMODE ---
[place] [address] 2 D/M-MODE ECHOCARDIOGRAM Name: DAI ZAMARRIPA Room: [address] ADM IN M.R.#: [id number] Admission: 04/28/19 Attend Phys: Sajan Jaime Discharge: Date of : 70 Date of Service: 04/29/19 1427 Report #: [id number] THIS REPORT FOR: //name// APPROVED REPORT Study performed: 04/29/2019 09:29:17 EXAM: Comprehensive 2D, Doppler, and color-flow Echocardiogram Patient Location: Bedside BSA: 1.98 HR: 78 bpm BP: 98/57 mmHg Other Information Study Quality: Good Indications Elevated Troponin 2D Dimensions IVSd: 12.01 (7-11mm) LVOT Diam: 20.32 (18-24mm) LVDd: 48.55 mm PWd: 11.86 (7-11mm) Ascending Ao: 33.21 (22-36mm) LVDs: 42.72 (25-40mm) Aortic Root: 30.11 mm Volumes Left Atrial Volume (Systole) LA ESV Index: 18.60 mL/m2 Aortic Valve AoV Peak Deyvi.: 0.90 m/s AO Peak Gr.: 3.22 mmHg LVOT Max P.82 mmHg AO Mean Gr.: 2.07 mmHg LVOT Mean P.79 mmHg LVOT Max V: 0.98 m/s AO V2 VTI: 16.86 cm LVOT Mean V: 0.62 m/s NEYMAR (VTI): 3.13 cm2 LVOT V1 VTI: 16.28 cm Mitral Valve E/A Ratio: 1.52 MV Decel. Time: 209.27 ms MV E Max Deyvi.: 0.70 m/s MV PHT: 60.69 ms MVA (PHT): 3.63 cm2 [place] [address] 2 D/M-MODE ECHOCARDIOGRAM Name: DAI ZAMARRIPA Room: [address] IN .R.#: [id number] Admission: 04/28/19 Attend Phys: Sajan Jaime Discharge: Date of : 70 Date of Service: 04/29/19 1427 Report #: [id number] TDI E/Lateral E': 6.36 E/Medial E': 7.78 Medial E' Deyvi.: 0.09 m/s Lateral E' Deyvi.: 0.11 m/s Pulmonary Valve PV Peak Deyvi.: 0.81 m/s PV Peak Gr.: 2.66 mmHg Tricuspid Valve RAP Estimate: 20.00 mmHg TR Peak Gr.: 29.71 mmHg RVSP: 49.71 mmHg PA Pressure: 49.71 mmHg Left Ventricle The left ventricle is normal size. There is mild diffuse hypokinesis of left ventricular wall motion. There is normal left ventricular wall thickness. Left ventricular systolic function is borderline. LVEF is 50%. The left ventricular diastolic function is normal. Right Ventricle The right ventricle is normal size. The right ventricular systolic function is normal. Atria The left atrium size is normal. The right atrium size is normal. Aortic Valve Mild aortic valve sclerosis. No aortic regurgitation is present. There is no aortic valvular stenosis. Mitral Valve The mitral valve is normal in structure. Mild mitral regurgitation. No evidence of mitral valve stenosis. Tricuspid Valve The tricuspid valve is normal in structure. Trace tricuspid regurgitation. Pulmonic Valve The pulmonary valve is normal in structure. There is no pulmonic valvular regurgitation. [place] [address] 2 D/M-MODE ECHOCARDIOGRAM Name: DAI ZAMARRIPA Room: [address] IN .R.#: [id number] Admission: 04/28/19 Attend Phys: Sajan Jaime Discharge: Date of : 70 Date of Service: 04/29/19 1427 Report #: [id number] The aortic root is normal in size. IVC is dilated and collapses <50% with inspiration. Pericardium There is no pericardial effusion. <Conclusion> The left ventricle is normal size. There is normal left ventricular wall thickness. Left ventricular systolic function is borderline. LVEF is 50%. The right ventricle is normal size. The left atrium size is normal. Mild aortic valve sclerosis. No aortic regurgitation is present. There is no aortic valvular stenosis. The mitral valve is normal in structure. Mild mitral regurgitation. The tricuspid valve is normal in structure. IVC is dilated and collapses <50% with inspiration. There is no pericardial effusion. There is mild diffuse hypokinesis of left ventricular wall motion. <ELECTRONICALLY SIGNED> By: Juan Galvin MD, [facility] 04/29/19 1427 1427 1427 Juan Galvin MD, [facility] /INF
--- NOTE | 2019-04-29 16:59 | EKG ---
[place] [address] ELECTROCARDIOGRAM REPORT Name: DAI ZAMARRIPA Room: [address] ADM IN M.R.#: [id number] Admission: 04/28/19 Attend Phys: Zarina Coulter Discharge: Date of : 70 Report #: [id number] THIS REPORT FOR: //name// [facility] ED Test Date: 2019-04-28 Test Time: 11:52:24 Pat Name: DAI ZAMARRIPA Department: Room: [facility] Gender: M Pcu Rn: CORNELL : 1970 Requested By: Sean Cortez Order Number: [id number] MD: Juan Galvin Measurements Intervals [place] Rate: 82 P: 79 [place]: 190 QRS: 4 QRSD: 90 T: 32 QT: 372 QTc: 435 Interpretive Statements Sinus rhythm Anterior infarct, old Compared to ECG 11/18/2018 06:03:51 No significant changes Electronically Signed On 04-29-2019 16:59:20 CDT by Juan Galvin [email or web address] <ELECTRONICALLY SIGNED> By: Juan Galvin MD, [facility] 04/29/19 1659 1152 1152 Juan Galvin MD, FAC /EPI
--- NOTE | 2019-04-29 17:09 | EKG ---
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
--- NOTE | 2019-04-29 17:24 | CARDNUC ---
[place] [address] CARDIAC NUCLEAR IMAGING REPORT Name: DAI ZAMARRIPA Room: [address] IN [facility]#: [id number] Admission: 04/28/19 Attend Phys: Sajan Jaime Discharge: Date of : 70 Date of Service: 04/29/19 1724 Report #: [id number] THIS REPORT FOR: //name// APPROVED REPORT Study performed: 04/29/2019 11:45:00 Indication: Troponin elevation Patient Location: In-Patient Room #: 201 Stress Tech: Rea Landry Stress Nurse: Esperanza Willingham RN Ht: 5 ft 9 in Wt: 180 lbs BSA: 1.98 m2 BMI: 26.57 Medical History Medical History: Fatigue, Hyperlipidemia, Seizures, Weakness, Elevated Troponin, Smokes Marijuana. Medications: Coreg, Lipitor, ASA 81 MG, Lisinopril. Allergies: Naproxen, Poison Mary Extract. Cardiac Risk Factors: Age, DM, Hyperlipidemia, Marijuana smoker. Previous Cardiac Procedures: None Pretest Chest Pain Characteristics: No chest pain Exercise History: Physically active Physical Disabilities: Generalized weakness, fatigue. Meds Held (24 hrs): Coreg Resting Data Rest SPECT myocardial perfusion imaging was performed in supine position 30 minutes following the intravenous injection of 11.1 mCi of Tc-99m Sestamibi. Time of rest injection: 13:45 The images were gated to evaluate regional wall motion and calculate left ventricular ejection fraction. Administration Route: IV Administration Site: Left Hand Pharmacologic Stress Pharmacologic stress test was performed by injecting Regadenoson 0.4 mg IV push over 10-15 seconds immediately followed by the intravenous injection of 33.8 mCi of Tc-99m Sestamibi. Time of stress injection: 15:15 Administration Route: [place] [address] CARDIAC NUCLEAR IMAGING REPORT Name: DAI ZAMARRIPA Room: [address] IN ..#: [id number] Admission: 04/28/19 Attend Phys: Sajan Jaime Discharge: Date of : 70 Date of Service: 04/29/19 1724 Report #: [id number] Administration Site: Left Hand Heart Rate at time of stress injection: 85 bpm. Gated Stress SPECT was performed 45 minutes after stress injection. The images were gated to evaluate regional wall motion and calculate left ventricular ejection fraction. Stress Test Details Stress Test: Pharmacologic stress was paired with low level exercise. Reason for pharmacologic stress test: HX of recent Seizure, Generalized weakness/fatigue.. HR Max Heart Rate (APMHR): 172 bpm Resting HR: 71 bpm Target HR (85% APMHR): 146 bpm Max HR Achieved: 110 bpm % of APMHR: 63 Recovery HR: 81 bpm BP Resting BP: 103/70 mmHg Max BP: 100/73 mmHg Recovery BP: 107/66 mmHg ECG Resting ECG: Sinus Rhythm Stress ECG: Sinus Tachycardia ST Change: None Arrhythmia: None Recovery ECG: Sinus Rhythm Recovery ST Change: None Recovery Arrhythmia: None Clinical Reason for Termination: Completed protocol Stress Symptoms: Fatigue, Weakness Exercise duration: 4 min 02 sec Exercise capacity: 2.15 METs The patient tolerated Lexiscan infusion without apparent symptoms. Nurse Comments 48 year old presented in wheelchair with flat affect, little to no eye contact, sometimes no response to conversation. Patient recent HX of seizure and elevated troponins. Patient tolerated walking Lexiscan well. Recovery unremarkable with PO caffeine. Patient escorted via wheelchair by staff to Nuclear Medicine [place] [address] CARDIAC NUCLEAR IMAGING REPORT Name: DAI ZAMARRIPA Room: [address] IN ..#: [id number] Admission: 04/28/19 Attend Phys: Sajan Jaime Discharge: Date of : 70 Date of Service: 04/29/19 1724 Report #: [id number] with no complaints at that time. Stress ECG Conclusion The baseline 12-lead EKG shows sinus rhythm without significant ST segment depression. EKGs obtained during and post Lexiscan infusion showed sinus rhythm and sinus tachycardia with no significant ST segment depression when compared to baseline. There were no stress-induced arrhythmias. Study Quality Study: Good Artifact: No artifact Study Data At rest, the left ventricular ejection fraction was 39%.. Post stress, the left ventricular ejection was 41%.. TID = 1.10. Perfusion There is a partially reversible mid anterior wall defect noted. There is a moderately reversible basal to mid inferior wall defect. Wall Motion There is mid anterior and basal to mid inferior wall hypokinesis noted. Nuclear Conclusion ECG Findings: negative for ischemia Clinical Findings: negative for ischemia Nuclear Findings: positive for ischemia Exercise Capacity: not assessed Left Ventricular Function: abnormal Risk Study: high Perfusion images suggest prior infarct of both the patient anterior as well as basal mid inferior wall with moderate sounds of melly-infarct ischemia identified. Global LV systolic function is moderately decreased. This is a high risk study. <Conclusion> The baseline 12-lead EKG shows sinus rhythm without significant ST segment depression. EKGs obtained during and post Lexiscan infusion showed sinus rhythm and sinus tachycardia with no [place] [address] CARDIAC NUCLEAR IMAGING REPORT Name: DALLINDAITiffany KAY Room: [address]#: [id number] Admission: 04/28/19 Attend Phys: Sajan Jaime Discharge: Date of : 70 Date of Service: 04/29/19 1724 Report #: [id number] segment depression when compared to baseline. There were no stress-induced arrhythmias. <ELECTRONICALLY SIGNED> By: To Robert MD, FACC 04/29/19 1724 1724 1724 To Robert MD, FAC /INF
[2019-04-29 20:00] VITALS: BP 82/46
[2019-04-29 23:31] LABS: AMP/METHAMP Negative (Negative); BARBITURATES Negative (Negative); BENZODIAZEPINES POSITIVE (Negative); COCAINE Negative (Negative); METHADONE Negative (Negative); OPIATES POSITIVE (Negative); PCP Negative (Negative); THC POSITIVE (Negative)
[2019-04-30] VITALS: BP 101/54
[2019-04-30 04:00] VITALS: BP 100/64
[2019-04-30 05:47] LABS: CALCIUM 8.3 mg/dL (8.5-10.1); CREATININE 1.1 mg/dL (0.6-1.3); POTASSIUM 3.4 mmol/L (3.5-5.1)
[2019-04-30 08:00] VITALS: BP 102/55
[2019-04-30 11:25] VITALS: BP 121/84
[2019-04-30 15:38] VITALS: BP 115/78
--- NOTE | 2019-04-30 16:41 | CARD ---
[facility] [address] [place] [address] CARDIAC CATH REPORT Name: DAI ZAMARRIPA Room: [address] IN M.R.#: [id number] Admission: 04/28/19 Attend Phys: Zarina Coulter Discharge: Date of : 70 Report #: [id number] THIS REPORT FOR: //name// APPROVED REPORT Study performed: 04/30/2019 13:19:31 Patient Details Patient Status: In-Patient Room #: The patient is a 48 year-old male Event Personnel To Robert Vice President Supply Chain, Kateryna Ruvalcaba RN Sports Clerk, Phillip Alan DYEHOUSE WORKER Scrub, Adele Freeman RN Monitor, Uche Guallpa DYEHOUSE WORKER Monitor Procedures Performed Left heart catheterization, left ventriculography and coronary angiography. Indication Non-STEMI (>12 hrs to = 24 hrs) Procedure Narrative The patient was brought electively to the Cardiac Catheterization Laboratory and was prepped and draped in a sterile manner. The right femoral was infiltrated with 1% Lidocaine subcutaneous anesthesia. A 6fr Ultimum Sheath sheath was inserted into the . Coronary angiography was performed using coronary diagnostic catheters. The right coronary system was accessed and visualized with a Diagnostic - JR4 catheter. The left coronary system was accessed and visualized with a Diagnostic - JL4 catheter. The left ventricle was accessed and visualized with a Diagnostic - STR PIG catheter. Closure device was deployed with a Fr MynxGrip 6/7F. The patient tolerated the procedure well and there were no complications associated with the procedure. There was no hematoma. Intraoperative Conscious Sedation Sedation start time: 1401 Case end Time: 1412 Fentanyl 50 mcg Versed 2 mg Fluoro Time: 1.5 minutes Dose: DAP 23175 cGycm2 671 mGy Contrast Type and Amount: Omnipaque [address] [place] [address] CARDIAC CATH REPORT Name: DALLINDAI ELIZA Room: [address] IN [facility].#: [id number] Admission: 04/28/19 Attend Phys: Zarina Coulter Discharge: Date of : 70 Report #: [id number] Coronary Angiography The patient's coronary anatomy is right dominant. Diagnostic Cath Left Main Normal. LAD The vessel has some tubular narrowing proximally felt to be due to coronary spasm. No hemodynamically significant stenoses were noted. The vessel appears otherwise normal. Diagonal 1 Normal. Diagonal 2 Normal. Circumflex Normal in the proximal mid and distal portion. OM1 Normal. OM2 Normal. Right Coronary Spasm noted in the proximal portion relieved with nitroglycerin. The vessel is otherwise normal. R PDA Normal. RPLV Normal. Left Ventriculography The left ventricle is normal in size with normal contractility. The left ventricular ejection fraction is estimated to be 60-65%. Hemodynamics The aortic pressure is 114/70 mmHg with a mean of 69 mmHg. The left ventricular pressure is 115/9 mmHg with a mean of mmHg. The left ventricular end diastolic pressure is 29 mmHg. Conclusion 1. Coronary spasm identified in the proximal LAD and proximal right coronary arteries. 2. No significant atherosclerotic disease noted. 3. Normal left ventricular systolic function. 4. Normal left ventricular end-diastolic pressure. Recommendations 1. Continue medical management and risk factor modification. 2. Recommend medication for coronary spasm. <ELECTRONICALLY SIGNED> By: To Robert MD, FACC 04/30/19 164 40 164Micjeovanny Robert MD, FACC /INF
[2019-04-30 20:00] VITALS: BP 114/81
[2019-05-01] VITALS: BP 138/51
[2019-05-01 03:44] VITALS: BP 113/62
[2019-05-01 08:00] VITALS: BP 118/78; BP 155/92
[2019-05-01] MEDS ORDERED: ASPIR 8181 MG PO (11:45)
[2019-05-01] MEDS ORDERED: LIPITOR10 MG PO (11:46)
[2019-05-01] MEDS ORDERED: CARDIZEM CD120 MG PO (11:46)
[2019-05-01] MEDS ORDERED: KEPPRA 500 MG500 M1 PO (11:47)
[2019-05-01] MEDS ORDERED: NITROGLYCERIN0.4 MG SUBLING (11:48)
[2019-05-01 11:49] VITALS: BP 118/78
--- NOTE | 2019-05-01 14:34 | CON ---
[address] [address] CONSULTATION Name: DAI ZAMARRIPA Room: [address] IN M.R.#: [id number] Admission: 04/28/19 Attend Phys: Zarina Coulter Discharge: 05/01/19 Date of : 70 Report #: [id number] THIS REPORT FOR: //name// CC: JORGE physician/PCP Kandace Jaime DATE OF SERVICE: 04/29/2019 HISTORY OF PRESENT ILLNESS: This is a 48-year-old male patient, who was evaluated by me for seizure. This patient had been admitted here before. He was seen by Dr. Sanchez and he is not taking his Keppra. Although, his workup was unremarkable and his seizure looks pretty typical. He also has complicated history that he has a history of benzodiazepine misuse, anxiety and cocaine abuse as per record. He is not much interested in giving the history and it was very difficult to get much history from him. The best I can tell, his drug screen was not done during this hospitalization, but has been done in the past. REVIEW OF SYSTEMS: Difficult to get from him, he is not much interested in giving the history. I got it mostly from the records as well from my prior notes and this is as summarized above. PAST MEDICAL HISTORY: Positive for seizure, but he has not taken his medications. FAMILY HISTORY: According to him is unremarkable. SOCIAL HISTORY: As described above, but very difficult, the patient will not cooperate with examination. PHYSICAL EXAMINATION: He is drowsy, but he wakes up. When he wakes up, he does not cooperate with the examination. We will try to re-evaluate him again tomorrow. He moves all 4 extremities. He does not appear to have any meningeal sign. His cardiac examination is unremarkable. His respiratory examination is unremarkable. His blood pressure is 103/81, respiration is 14, pulse rate is 74, and temperature is 99.4. DIAGNOSTIC STUDIES: His prior imaging studies and the imaging study from the present was reviewed and that does not show any abnormality. IMPRESSION: This patient has multiple seizures. It will be best for him to go on anticonvulsant. He wants to do that and he wants to go on Keppra. I discussed the potential side effects of Keppra with him and he understands it. We will start him on that. He needs to take seizure precautions for 6 months and he cannot drive for 6 months. [place] [address] CONSULTATION Name: DALLINDAITiffany KAY Room: [address]#: [id number] Admission: 04/28/19 Attend Phys: Zarina Coulter Discharge: 05/01/19 Date of : 70 Report #: [id number] Thank you very much for this referral and we will follow this patient along with you. <ELECTRONICALLY SIGNED> By: Jefe Louise MD 05/01/19 1434 [id number] Louise MD /nt
--- NOTE | 2019-05-01 14:34 | EEG ---
[facility] [address] [place] [address] EEG STUDY REPORT Name: ADLLINDAITiffany KAY Room: [address] IN M.R.#: [id number] Admission: 04/28/19 Attend Phys: Zarina Coulter Discharge: 05/01/19 Date of : 70 Report #: [id number] THIS REPORT FOR: //name// CC: FAM physician/PCP Kandace Jaime DATE OF SERVICE: 04/29/2019 This patient has a history of seizure and EEG was done to further evaluate that. EEG was done by placing the electrodes by standard 10-20 system of electrode placement. Both referential and sequential montages were used for recording. The background activity in this patient's EEG is about 11 Hz and 40 microvolt. This was a symmetrical activity. Photic stimulation was unremarkable. The patient went to sleep and that is associated with bilaterally symmetrical sleep spindle and vertex sharp waves. Throughout the record, no active epileptiform activity was noticed. IMPRESSION: This patient's EEG is unremarkable. Thank you very much for this referral. <ELECTRONICALLY SIGNED> By: Jefe Louise MD 05/01/19 1434 0832 [id number] Louise MD /nt
== END 2019-05-01 12:40 | disposition home or self-care (01) | DRG 281 ==
LOC: M.ERS 11:18 → M.2W 13:49 → M.TBA-ER 13:49 → M.2W 15:30
PROVIDERS: Family Medicine; Registered Nurse; ADMIT Internal Medicine
PROC: B2151ZZ Fluoroscopy of Left Heart using Low Osmolar Contrast (ICD-10-PCS; principal; 2019-04-30)
PROC: 4A023N7 Measurement of Cardiac Sampling and Pressure, Left Heart, Percutaneous Approach (ICD-10-PCS; principal; 2019-04-30)
PROC: B2111ZZ Fluoroscopy of Multiple Coronary Arteries using Low Osmolar Contrast (ICD-10-PCS; principal; 2019-04-30)
DX: I21.4 Non-ST elevation (NSTEMI) myocardial infarction (principal); I42.9 Cardiomyopathy, unspecified; F12.10 Cannabis abuse, uncomplicated; G89.29 Other chronic pain; M54.5 Low back pain; F14.10 Cocaine abuse, uncomplicated; G40.409 Other generalized epilepsy and epileptic syndromes, not intractable, without status epilepticus; Z91.19 Patient's noncompliance with other medical treatment and regimen; Z79.82 Long term (current) use of aspirin; Z88.8 Allergy status to other drugs, medicaments and biological substances; Z91.041 Radiographic dye allergy status; Z79.899 Other long term (current) drug therapy